=== PATIENT | male | born 1980 | race Caucasian/White ===

== ENCOUNTER 2017-07-10 15:53 | Outpatient (CLI) | END 2017-07-10 15:54 | disposition home or self-care (01) | LOC: LAB 15:53 | PROVIDERS: ATTEND Physician Assistant | DX: Z32.01 Encounter for pregnancy test, result positive (principal) | CPT/HCPCS: 36415; 84702 ==

== ENCOUNTER 2018-02-16 18:21 | Outpatient (CLI) | END 2018-02-16 18:39 | disposition short-term general hospital (02) | LOC: AMBL 18:21 | PROVIDERS: ATTEND Internal Medicine | DX: O42.02 Full-term premature rupture of membranes, onset of labor within 24 hours of rupture (principal) ==

== ENCOUNTER 2018-02-22 04:15 | Outpatient (CLI) | END 2018-02-22 04:35 | disposition short-term general hospital (02) | LOC: AMBL 04:15 | PROVIDERS: ATTEND Internal Medicine Geriatric Medicine | DX: G89.18 Other acute postprocedural pain (principal); R10.9 Unspecified abdominal pain; Z98.890 Other specified postprocedural states ==